=== PATIENT | female | born 1975 | race Caucasian/White ===

== ENCOUNTER 2021-02-28 21:15 | Emergency (ER) | payer OTHER ==
[~2021-02-28] VITALS: Ht 162.6 cm; Wt 72.6 kg
[2021-02-28 21:25] VITALS: BP 145/92
--- NOTE | 2021-02-28 21:25 | NUR ---
TO BED AMBULATORY
--- NOTE | 2021-02-28 21:54 | NUR ---
C/O DIZZINESS , NECK PAIN. H/A .FOR 3 DAYS, WITH ANEMIA. PAIN OF 8/10 STABBING AND THROBBING THAT IS CONSTANT. PATIENT ALSO COMPLAINS OF SPOTTING BLOOD IN HER VAGINA. PATIENT REPORTS GETTING TRANSFUSIONS EVERY COUPLE OF MONTHS, LAST ONE WAS IN JUN-JUL 2020. PATIENT TOOK 800MG OF IBUPROFEN 2HRS AGO. AAOX4. PMH: ANEMIA, ENDOMETRIOSIS, FIBROIDS, GASTIC BYPASS NKA
--- NOTE | 2021-02-28 22:45 | NUR ---
KIAH KEENAN AT BEDSIDE EXAMINING PATIENT
[2021-02-28] MEDS ORDERED: HYDROcodone/APAP 5/325 MG 1 TAB TAB PO ONE (22:55)
[2021-02-28] MEDS ORDERED: diazePAM 5 MG TAB PO ONE (22:55)
--- NOTE | 2021-02-28 23:05 | NUR ---
20G IV TO LT FOREARM. BLOOD DRAWN VIA IV START AND HANDED SYDNIE MAGALLANES TECH
[2021-02-28 23:18] LABS: BASOPHILS % (AUTO) 0.2 % (0.0-2.0); EOSINOPHILS # (AUTO) 0.1 K/uL (0-0.4); HEMOGLOBIN 8.9 g/dL (12.0-16.0); MONOCYTES # (AUTO) 0.4 K/uL (0.8-1.0)
[2021-02-28 23:23] LABS: EOSINOPHILS % (AUTO) 1.6 % (0.0-4.0); HEMATOCRIT 29.1 % (36-48); LYMPHOCYTES # (AUTO) 1.6 K/uL (2.5-16.5); LYMPHOCYTES % (AUTO) 25.2 % (20.5-51.1); MEAN CORPUSCULAR HEMOGLOBIN 19 pg (27-31); MEAN CORPUSCULAR HGB CONC 30 g/dL (33-37); MEAN CORPUSCULAR VOLUME 61.2 fL (80-94); MONOCYTES % (AUTO) 6.7 % (1.7-9.3); NEUTROPHILS # (AUTO) 4.1 K/uL (1.8-7.7); NEUTROPHILS % (AUTO) 66.3 % (42.2-75.2); PLATELET COUNT (AUTO) 327 K/uL (140-450); RED BLOOD CELL COUNT(AUTO) 4.76 MIL/uL (4.20-5.40); RED CELL DISTRIBUTION WIDTH 20.6 % (11.6-13.7); WHITE BLOOD COUNT (AUTO) 6.1 K/uL (4.8-10.8)
[2021-03-01 00:11] LABS: ALBUMIN 3.4 g/dL (3.4-5.0); ANION GAP 12.2 (8-16); CREATININE 0.7 mg/dL (0.6-1.3); POTASSIUM 3.2 mmol/L (3.5-5.1); TOTAL BILIRUBIN 0.5 mg/dL (0.0-1.0)
[2021-03-01] MEDS ORDERED: METH-1681 PO (01:01)
--- NOTE | 2021-03-01 01:09 | NUR ---
IV removed, catheter intact and site benign. Applied folded 4x4 gauze and tape to stop bleeding.
[2021-03-01 01:12] VITALS: BP 124/80
--- NOTE | 2021-03-01 01:12 | NUR ---
Patient discharged with v/s stable. Written and verbal after care instructions given and explained. Patient alert, oriented and verbalized understanding of instructions. Ambulatory with steady gait. All questions addressed prior to discharge. ID band removed. Patient advised to follow up with PMD. Rx of Robaxin given. Patient educated on indication of medication including possible reaction and side effects. Opportunity to ask questions provided and answered.
== END 2021-03-01 01:12 | disposition home or self-care (01) ==
LOC: MED 21:15
DX: S16.1XXA Strain of muscle, fascia and tendon at neck level, initial encounter (principal); D64.9 Anemia, unspecified; N93.9 Abnormal uterine and vaginal bleeding, unspecified; X58.XXXA Exposure to other specified factors, initial encounter; Y93.89 Activity, other specified; Y92.89 Other specified places as the place of occurrence of the external cause; Y99.8 Other external cause status
CPT/HCPCS: 36415; 80053; 85025; 86886; 86900; 86901; 99283